=== PATIENT | female | born 1960 | race Caucasian/White ===

== ENCOUNTER → 2019-01-21 | Outpatient (CLI) | payer OTHER | LOC: RAD 14:12 | DX: M19.032 Primary osteoarthritis, left wrist (principal); M19.031 Primary osteoarthritis, right wrist ==

== ENCOUNTER → 2020-07-19 | Outpatient (CLI) | payer OTHER | LOC: RAD 12:41 | PROVIDERS: ATTEND Family Medicine | DX: M47.817 Spondylosis without myelopathy or radiculopathy, lumbosacral region (principal); M25.551 Pain in right hip ==